=== PATIENT | male | born 1945 | race Caucasian/White ===

== ENCOUNTER 2017-06-01 13:14 | Emergency (ER) | payer MEDICARE ==
[~2017-06-01] VITALS: Ht 180.3 cm; Wt 75.0 kg
[2017-06-01 13:16] VITALS: BP 126/61; PULSE 115; RESP 20; TEMP 98; O2SAT 95
[2017-06-01] MEDS ORDERED: FURO1TAB62 PO (14:23)
--- NOTE | 2017-06-01 14:23 | PD ---
HPI Chief Complaint: Edema Time Seen by Provider: 14:21 Travel History International Travel<30 days: No Contact w/Intl Traveler<30days: No Traveled to known affect area: No History of Present Illness HPI 72 yo M c/o bilateral LE pitting edema for the past few days. He has been walking and cooking more than normal. He has hx cirrhosis. He has had similar problems previously associated with excessive activity. Compliance with lasix reported. USaully in the mornings swelling is gone however returns by end of day. No dyspnea, no cough, no fever. PFSH Social History Tobacco Use: No Allergies-Medications (Allergen,Severity, Reaction): Coded Allergies: No Known Allergies (Unverified , 06/01/17) Reported Meds & Prescriptions Reported Meds & Active Scripts Active Lasix (Furosemide) 20 Mg Tab 20 Mg PO DAILY Review of Systems Except as stated in HPI: all other systems reviewed are Neg General / Constitutional: No: Fever Gastrointestinal: No: Nausea, Vomiting, Abdominal Pain Physical Exam Narrative GENERAL: 72 yo M, WNWD, pleasant SKIN: Warm and dry. HEAD: Atraumatic. Normocephalic. EYES: Pupils equal and round. No scleral icterus. No injection or drainage. ENT: No nasal bleeding or discharge. Mucous membranes pink and moist. NECK: Trachea midline. No JVD. CARDIOVASCULAR: Regular rate and rhythm. RESPIRATORY: No accessory muscle use. Clear to auscultation. Breath sounds equal bilaterally. GASTROINTESTINAL: Abdomen soft, non-tender, nondistended. Hepatic and splenic margins not palpable. MUSCULOSKELETAL: R>L pitting edema, no erythema/induration/tenderness. 2+ DP bilaterally. NEUROLOGICAL: Awake and alert. No obvious cranial nerve deficits. Motor grossly within normal limits. Five out of 5 muscle strength in the arms and legs. Normal speech. PSYCHIATRIC: Appropriate mood and affect; insight and judgment normal. Data Data Last Documented VS Vital Signs Date Time Temp Pulse Resp B/P (MAP) Pulse Ox O2 Delivery O2 Flow Rate FiO2 06/01/17 13:16 98.0 115 20 126/61 (82) 95 Room Air VS signs reviewed, pulse reassessed by me at 229pm. MDM Medical Decision Making Medical Screen Exam Complete: Yes Emergency Medical Condition: Yes Differential Diagnosis edema, DVT, hypoalbuminemia, venous insufficiency Narrative Course The patient has no history of DVT. He reports similar evident with an admission several months ago at which time a LE DVT study was done and reportedly negative. We'll double his dose of Lasix. Increased rest and elevation of legs discussed. Diagnosis Primary Impression: Edema of lower extremity Additional Impression: Cirrhosis of liver Qualified Codes: K74.60 - Unspecified cirrhosis of liver Med/Other Pt SpecificInfo: Prescription(s) given, No Change to Meds Scripts Furosemide (Lasix) 20 Mg Tab 20 MG PO DAILY, #10 TAB 0 Refills Prov: Philip Mccann MD 06/01/17 Disposition: 01 DISCHARGE HOME Condition: Stable Philip Mccann MD Jun 01, 2017 14:23
== END 2017-06-01 14:30 | disposition home or self-care (01) ==
LOC: NEPK 13:14
DX: R60.0 Localized edema (principal); K74.60 Unspecified cirrhosis of liver
CPT/HCPCS: 99283